=== PATIENT | female | born 1975 | race American Indian/Alaskan Native ===

== ENCOUNTER 2024-06-14 16:55 | Emergency (ER) | payer BC, MEDICAID ==
[~2024-06-14] VITALS: Ht 167.6 cm; Wt 64.0 kg
[2024-06-14 16:59] VITALS: BP 130/90; PULSE 90; RESP 16; TEMP 98.5; O2SAT 98
[2024-06-14 17:25] LABS: BASOPHILS % 1.5 % (0.0-2.0); EOSINOPHILS % 0.9 % (0.0-5.0); HEMATOCRIT. 37.1 % (36.0-48.0); HEMOGLOBIN. 12.5 g/dL (12.0-16.0); LYMPHOCYTES % 55.3 % (20.0-50.0); MEAN CORPUSCULAR HEMOGLOBIN 28.8 pg (28.0-32.0); MEAN CORPUSCULAR HGB CONC 33.7 g/dL (31.0-37.0); MEAN CORPUSCULAR VOLUME 85.6 fL (81.0-99.0); MEAN PLATELET VOLUME 7.2 fl (7.4-10.4); MONOCYTES % 8.2 % (2.0-8.0); NEUTROPHILS % 34.1 % (40.0-76.0); PLATELET 403 x1000/uL (130-400); RED BLOOD CELL COUNT 4.34 mill/uL (4.2-5.4); RED CELL DISTRIBUTION WIDTH 15.6 % (11.6-14.6); WHITE BLOOD COUNT 7.9 x1000/uL (4.5-11.0)
[2024-06-14 17:32] LABS: CHLORIDE 109 mEq/L (98-107); POTASSIUM 3.9 mEq/L (3.5-5.1); SODIUM 143 mEq/L (136-145)
[2024-06-14 17:33] LABS: CARBON DIOXIDE 24 mEq/L (21-32)
[2024-06-14 17:34] LABS: CALCIUM 9.2 mg/dL (8.7-10.4)
[2024-06-14 17:37] LABS: HCG SCREEN NEGATIVE
[2024-06-14 17:38] LABS: CREATININE 0.7 mg/dL (0.6-1.0); GLUCOSE 101 mg/dL (70-105)
[2024-06-14 17:39] LABS: UREA NITROGEN BLOOD 8 mg/dL (9-23)
[2024-06-14 17:48] LABS: ETHANOL BLOOD 379 mg/dL (<10)
== END 2024-06-14 18:20 | disposition home or self-care (01) ==
LOC: ER 16:55
DX: F10.129 Alcohol abuse with intoxication, unspecified (principal); F41.9 Anxiety disorder, unspecified; Y90.8 Blood alcohol level of 240 mg/100 ml or more
CPT/HCPCS: 36415; 80048; 80320; 84703; 85025; 99283; G0480